=== PATIENT | female | born 1950 | race Caucasian/White ===

== ENCOUNTER 2020-04-09 15:06 | Outpatient (CLI) | payer MEDICARE, SELFPAY ==
--- NOTE | ~2020-04-09 | MM_ITS ---
EXAMINATION: MM screening [facility] BI w jacki HISTORY: Screening TECHNIQUE: Craniocaudal and mediolateral oblique 3-D tomosynthesis images were obtained and synthetic 2-D images were generated. CAD analysis was submitted and interpreted. COMPARISON: Comparison to multiple prior studies sequentially, with oldest reviewed study dated 03/24. BREAST PARENCHYMAL COMPOSITION: There are scattered areas of fibroglandular density. FINDINGS: There is no evidence of suspicious mass, calcification, or architectural distortion to sugg est malignancy in either breast. There has been no suspicious interval change. IMPRESSION: 1. No mammographic evidence of malignancy. 2. Recommend routine screening mammography in one year. BI-RADS Category 1: Negative Reviewed, dictated and finalized at location A.
== END 2020-04-09 15:07 | disposition home or self-care (01) ==
LOC: ANHIMG 15:12
DX: Z12.31 Encounter for screening mammogram for malignant neoplasm of breast (principal)
CPT/HCPCS: 77063; 77067

== ENCOUNTER 2021-05-07 12:41 | Outpatient (CLI) | payer MEDICARE, SELFPAY ==
--- NOTE | ~2021-05-07 | MM_ITS ---
EXAMINATION: MM screening [facility] BI w jacki HISTORY: Screening TECHNIQUE: Craniocaudal and mediolateral oblique 3-D tomosynthesis images were obtained and synthetic 2-D images were generated. CAD analysis was submitted and interpreted. COMPARISON: Comparison to multiple prior studies sequentially, with oldest reviewed study dated 06/07. BREAST PARENCHYMAL COMPOSITION: There are scattered areas of fibroglandular density. FINDINGS: There is no evidence of suspicious mass, calcification, or architectural distortion to sugg est malignancy in either breast. There has been no suspicious interval change. IMPRESSION: 1. No mammographic evidence of malignancy. 2. Recommend routine screening mammography in one year. BI-RADS Category 1: Negative Reviewed, dictated and finalized at location D.
== END 2021-05-07 12:42 | disposition home or self-care (01) ==
LOC: ANHIMG 12:50
DX: Z12.31 Encounter for screening mammogram for malignant neoplasm of breast (principal)
CPT/HCPCS: 77063; 77067

== ENCOUNTER 2022-06-04 15:23 | Outpatient (CLI) | payer MEDICARE, SELFPAY ==
--- NOTE | ~2022-06-04 | MM_ITS ---
EXAMINATION: MM screening [facility] BI w jacki HISTORY: Screening mammogram TECHNIQUE: Craniocaudal and mediolateral oblique 3-D tomosynthesis images were obtained and synthetic 2-D images were generated. CAD analysis was submitted and interpreted. COMPARISON: 05/07/2021, 04/2020, 11/08/2018 bilateral screening mammogram examinations BREAST PARENCHYMAL COMPOSITION: There are scattered areas of fibroglandular density. FINDINGS: There is no evidence of suspicious mass, calcification, or architectural distortion to sugg est malignancy in either breast. There has been no suspicious interval change. IMPRESSION: 1. No mammographic evidence of malignancy. 2. Recommend routine screening mammography in one year. BI-RADS Category 1: Negative Reviewed, dictated and finalized at location A.
== END 2022-06-04 15:24 | disposition home or self-care (01) ==
DX: Z12.31 Encounter for screening mammogram for malignant neoplasm of breast (principal)
CPT/HCPCS: 77063; 77067

== ENCOUNTER 2023-11-03 15:45 | Outpatient (CLI) | payer MEDICARE, SELFPAY ==
--- NOTE | ~2023-11-03 | MM_ITS ---
EXAMINATION: MM screening [facility] BI w jacki HISTORY: Screening TECHNIQUE: Craniocaudal and mediolateral oblique 3-D tomosynthesis images were obtained and synthetic 2-D images were generated. CAD analysis was submitted and interpreted. COMPARISON: Comparison to multiple prior studies sequentially, with oldest reviewed study dated 04/2017. BREAST PARENCHYMAL COMPOSITION: Not dense: There are scattered areas of fibroglandular density. FINDINGS: There is a new focal asymmetry in the upper outer quadrant of the right breast posteriorly. The left breast is stable without evidence for malignancy. IMPRESSION: 1. New right breast asymmetry. 2. Additional mammographic views and possible breast ultrasound are recommended. BI-RADS Category 0: Incomplete: Needs additional imaging evaluation. Reviewed, dictated and finalized at location A. L PRESS OPERATOR IMPRESSION: 1. New right breast asymmetry. 2. Additional mammographic views and possible breast ultrasound are recommended . BI-RADS Category 0: Incomplete: Needs additional imaging evaluation.
== END 2023-11-03 15:46 | disposition home or self-care (01) ==
DX: Z12.31 Encounter for screening mammogram for malignant neoplasm of breast (principal); R92.8 Other abnormal and inconclusive findings on diagnostic imaging of breast
CPT/HCPCS: 77063; 77067

== ENCOUNTER 2024-01-21 12:57 | Outpatient (CLI) | payer MEDICARE, SELFPAY ==
--- NOTE | ~2024-01-21 | MM_ITS ---
EXAMINATION: MM diagnostic paula RT w jacki HISTORY: New focal asymmetry reported in the upper outer right breast posteriorly TECHNIQUE: Additional 3-D tomosynthesis images of the right breast were performed and synthetic 2-D i mages were generated. Rolled medial and rolled lateral craniocaudal views. CAD analysis was submitted and interpreted. COMPARISON: November 03, 2023, June 04, 2022 bilateral screening mammogram examinations FINDINGS: No suspicious mass or architectural distortion, malignant calcification, skin thickening or retraction or significant new or developing density is detected. IMPRESSION: 1. No mammographic evidence of malignancy 2. Routine annual mammographic screening is recommended BI-RADS Category 1: Negative Reviewed, dictated and finalized at location B.
== END 2024-01-21 12:58 | disposition home or self-care (01) ==
LOC: ANHIMG 12:58
DX: R92.8 Other abnormal and inconclusive findings on diagnostic imaging of breast (principal); N64.89 Other specified disorders of breast
CPT/HCPCS: 77061; 77065; G0279

== ENCOUNTER 2025-04-30 14:36 | Outpatient (CLI) | payer MEDICARE, SELFPAY ==
--- NOTE | ~2025-04-30 | MM_ITS ---
EXAMINATION: MM screening paula BI w jacki HISTORY: Screening TECHNIQUE: Craniocaudal and mediolateral oblique 3-D tomosynthesis images were obtained and synthetic 2-D images were generated. CAD analysis was submitted and interpreted. COMPARISON: Comparison to multiple prior studies sequentially, with oldest reviewed study dated 05/14/2017. BREAST PARENCHYMAL COMPOSITION: There are scattered areas of fibroglandular density. FINDINGS: There is no evidence of suspicious mass, calcification, or architectural distortion to suggest malignancy in either breast. IMPRESSION: 1. No mammographic evidence of malignancy. 2. Recommend routine screening mammography in one year. BI-RADS Category 1: Negative Reviewed, dictated and finalized at location B.
--- OUTSIDE RECORDS SUMMARY | 2025-04-30 14:45 | XMS_ITS | Encounter Summary ---
Author Organization [facility] Address [facility] [place] [address] Care Team Providers Care Field Cane Scale Clerk Name Role Phone Meaghan Olsen MD Primary Care Provider García Saucedo MD Unavailable [phone] John Dang MD Unavailable Reason for Visit * Reason Onset Date Comments MEDICATION REFILL 09/20/2018 Encounter Details Date Type Department Care Team (Late Contact Info) Description 09/20/2018 Refill [facility] General Internal Medicine [address] [facility] [address] [place] [address] Meaghan Olsen MD [address] [facility] [address] [place] [address] MEDICATION REFILL Social History Tobacco Use Types Packs/Day Years Used Date Smoking Tobacco: Never Smokeless Tobacco: Never Alcohol Use Standard Drinks/Week Comments Yes 1 (1 standard drink = 0.6 oz pur e alcohol) rare Comments No Sex and Gender Information Value Date Recorded Sex Assigned at Not on file Legal Sex Female 12:58 PM CDT Gender Identity Not on file Sexual Orientation Not on file documented as of this encounter Plan of Treatment Upcoming Encounters Date Type Department Care Team (Late Contact Info) Description 04/25/2026 1:00 PM CDT Office Visit [facility] Physician Group - RETAIL EQUIPMENT ASSOCIATE [address] [facility] [address] [place] [id number] Elijah Muir MD [address] [place], [place] [id number] documented as of this encounter Visit Diagnoses Not on filedocumented in this encounter Care Teams Field Cane Scale Clerk Relationship Specialty Start Date End Date Meaghan Olsen MD PCP - General 02/22/18 García Saucedo MD [address] [place] [address] Endocrinology 11/29/18 John Dang MD [address] [place] [address] Pulmonary Disease 11/29/18 documented as of this encounter
--- OUTSIDE RECORDS SUMMARY | 2025-04-30 14:45 | XMS_ITS | Encounter Summary ---
Author Organization [facility] Address [address] [place] [address] Phone Care Team Providers Care Skip Tracer Name Role Phone Meaghan Olsen MD Primary Care Provider García Saucedo MD Unavailable [phone] Laverne Tavarez MD PhD Unavailable [phone] Elijah Muir MD Unavailable [phone] Huma Olsen RN Unavailable Unavailabl e Encounter Details Date Type Department Care Team (Latest Contact Info) Description 11/03/2023 Orders Only [facility] Scanning, Provider Social History Tobacco Use Types Packs/Day Years Used Date Smoking Tobacco: Never Smokeless Tobacco: Never AUDIT-C Answer Date Recorded Q1: How often do you have a drink containing alc ohol? 2-4 times a month 02/19/2022 Q2: How many drinks containi ng alcohol do you have on a typical day when you are drinking? 1 or 2 02/19/2022 Q3: How often do you have si x or more drinks on one occasion? 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 Gender Identity Not on file Sexual Orientation Not on file documented as of this encounter Plan of Treatment Scheduled Procedures Name Priority Associated Diagnoses Date/Ti me COLONOSCOPY Other constipation ESOPHAGOGASTRODUODENOSCOPY Gastroesophageal reflux disease without esophagitis documented as of this encounter Procedures Procedure Name Priority Date/Time Associated Diagnosis Comments SCAN - RADIOLOGY/IMAGING 11/03/2023 documented in this encounter Results * SCAN - RADIOLOGY/IMAGING (11/03/2023) Anatomical Region Laterality Modality Other Provider Scanning Final Result documented in this encounter Visit Diagnoses Not on filedocumented in this encounter Care Teams Skip Tracer Relationship Specialty Start Date End Date Meaghan Olsen MD PCP - General 12/20/17 García Saucedo MD Consulting Physician Bone Health 03/24/21 Laverne Tavarez MD PhD [address] [facility] [address] [place] [address] Consulting Physician Pulmonary Disease 03/24/21 Elijah Muir MD [address] [facility] [address] [place] [address] Obstetrics and Gynecology 03/26/21 Huma Olsen RN Registered Nurse Pulmonary Disease 08/02/23 documented as of this encounter
--- OUTSIDE RECORDS SUMMARY | 2025-04-30 14:46 | XMS_ITS | Encounter Summary ---
Author Organization [facility] Address [facility] [place] [address] Care Team Providers Care Monotype Setter Name Role Phone Meaghan Olsen MD Primary Care Provider García Saucedo MD Unavailable [phone] John Dang MD Unavailable Reason for Visit * Reason Onset Date Comments MEDICATION REFILL 08/15/2018 Encounter Details Date Type Department Care Team (Late st Contact Info) Description 08/15/2018 Refill [facility] General Internal Medicine [address] [facility] [address] [place] [address] Meaghan Olsen MD [address] [facility] [address] [place] [address] MEDICATION REFILL Social History Tobacco [...] on file documented as of this encounter Miscellaneous Notes * Telephone Encounter - Argelia Stubbs - 08/15/2018 9:19 AM CST Patient requesting refills for the following (estradiol 0.5 mg ) medications. Patient reports that she is taking only half a tablet VAN:05-31-18 NOV:11-29-18 @ 9:30 am Problem List Identified: office visit on 02-22-18 hot flashes Medication attached per refill protocol/guidlines for further review by provider yes PCP / Resident PCP verified yes Allergies Reviewed yes Pharmacy Reviewed yes Medication details entered yes Office visit within the last six months yes if not within last 6 months route to GIM-scheduling as well. Office visit greater than 12 months no routed to GIM scheduling ONLY no. AND CENTER OFFICER documented in this encounter Plan of Treatment Upcoming Encounters Date Type Department Care Team (Late st Contact Info) Description 04/25/2026 1:00 PM CDT Office Visit [facility] Physician Group - MONOTYPE MACHINIST [address] [facility] [address] [place] [address] Elijah Muir MD [address] [facility] [address] [place] [address] documented as of this encounter Visit Diagnoses Not on filedocumented in this encounter Care Teams Monotype Setter Relationship Specialty Start Date End Date Meaghan Olsen MD PCP - General 02/22/18 García Saucedo MD [address] [place] [phone] Endocrinology 11/29/18 John Dang MD [address] [place] [address] Pulmonary Disease 11/29/18 documented as of this encounter
--- OUTSIDE RECORDS SUMMARY | 2025-04-30 14:46 | XMS_ITS | Encounter Summary ---
Author Organization [facility] Address [address] [place] [address] Phone Care Team Providers Care Knitting Machine Fixer Head Name Role Phone Lisseth Perez MD Primary Care Provider + Lisseth Perez MD Primary Care Provider + Clement Childs MD Primary Care Provider + Lisseth Perez MD Primary Care Provider + Lisseth Perez MD Primary Care Provider + Meaghan Olsen MD Primary Care Provider García Saucedo MD Unavailable [phone] Laverne Tavarez MD PhD Unavailable Elijah Muir MD Unavailable [phone] Huma Olsen RN Unavailable Unavailabl e Encounter Details Date Type Department Care Team (Latest Contact Info) Description 11/03/2017 Orders Only [facility] Scanning, Provider Social History Tobacco Use Types Packs/Day Years Used Date Smoking Tobacco: Never Assessed Comments Unknown Sex and Gender Information Value Date Recorded Sex Assigned at Not on file Legal Sex Female 4:36 PM YOUTH CARE SPECIALIST Gender Identity Not on file Sexual Orientation Not on file documented as of this encounter Plan of Treatment Scheduled Procedures Name Priority Associated Diagnoses Date/Ti me COLONOSCOPY Other constipation ESOPHAGOGASTRODUODENOSCOPY Gastroesophageal reflux disease without esophagitis documented as of this encounter Procedures Procedure Name Priority Date/Time Associated Diagnosis Comments PULMONARY FUNCTION TEST (PFT) 11/03/2017 9:30 AM YOUTH CARE SPECIALIST documented in this encounter Results * PULMONARY FUNCTION TEST (PFT) (11/03/2017 9:30 AM YOUTH CARE SPECIALIST) Anatomical Region Laterality Modality PFT us Provider Scanning PFT ORDERABLES Final Result documented in this encounter Visit Diagnoses Not on filedocumented in this encounter Care Teams Knitting Machine Fixer Head Relationship Specialty Start Date End Date Lisseth Perez MD [address] [place] [address] PCP - General 08/02/17 11/21/17 Lisseth Perez MD [address] [place] [address] PCP - General 11/22/17 11/29/17 Clement Childs MD [address] [place] [address] PCP - General 11/30/17 12/12/17 Lisseth Perez MD [address] [place] [address] PCP - General 12/13/17 12/13/17 Lisseth Perez MD [address] [place] [address] PCP - General 12/14/17 12/19/17 Meaghan Olsen MD [address] [place] [address] PCP - General 12/20/17 García Saucedo MD [address] [place] [address] Consulting Physician Bone Health 03/24/21 Laverne Tavarez MD PhD [address] [facility] [address] [place] [address] Consulting Physician Pulmonary Disease 03/24/21 Elijah Muir MD [address] [place] [address] Obstetrics and Gynecology 03/26/21 Huma Olsen RN Registered Nurse Pulmonary Disease 08/02/23 documented as of this encounter
--- OUTSIDE RECORDS SUMMARY | 2025-04-30 14:46 | XMS_ITS | Clinical Summary ---
Author Organization [facility] Address [address] [place] [address] Care Team Providers Care Lotus Notes Administrator Name Role Phone Meaghan Olsen MD Primary Care Provider García Saucedo MD Unavailable [phone] Laverne Tavarez MD PhD Unavailable [phone] Elijah Muir MD Unavailable [phone] Huma Olsen RN Unavailable Unavailabl e Allergies Active Allergy Reactions Criticality Noted Date Comments Levofloxacin Other (See comments),Unknown Low 04/29/2015 Flu like symptoms Flu like symptom Metformin Diarrhea Low 12/07/2023 Not effective Mold Anaphylaxis High 12/20/2017 Medications terri eiaz-eskastvg-ehsj lenic ac 1,000 mg capsule Take by mouth. Activ e cholecalciferol, vitamin D3, (CHOLECALCIFEROL, VIT D3,,BULK, MISC) 2,000 Units Active estradioL (ESTRACE) 0.5 mg tablet Take 1 tablet (0.5 mg total) by mouth daily 09/12/19 20 Active fluticasone propion-salmeteroL (ADVAIR DISKUS) 100-50 mcg/dose diskus inhaler Inhale 1 puff 2 (two) times a day Rinse mouth with water after use. Do not swallow. 1 each 07/22/20 22 Active omeprazole (PriLOSEC) 20 mg capsuleIndications :Gastroesophageal reflux disease without esophagitis Take 1 capsule (20 mg total) by mouth daily 90 capsule 3 08/04/20 23 Active rosuvastatin (CRESTOR) 5 mg tablet TAKE 1 TABLET(5 MG) BY MOUTH DAILY 90 tablet 4 03/07/20 24 Active turmeric root extract 500 mg capsule Take by mouth Active glucosamine-chondr oitin 500-400 mg tablet Take 1 tablet by mouth 3 (three) times a day Active albuterol HFA (PROVENTIL HFA,VENTOLIN HFA,PROAIR HFA) 90 mcg/actuation inhalerIndications :Viral upper respiratory tract infection Inhale 2 puffs every 6 (six) hours as needed for wheezing 1 each 5 06/08/20 24 Active valACYclovir (VALTREX) 1 gram tablet Take 2 tabs (2000 mg) 2 times a days for 1 day. 8 tablet 2 08/09/20 24 Active Additional Information Patient taking differently: As needed, Take 2 tabs (2000 mg) 2 times a days for 1 day., Reported on 11/14/2024 tirzepatide, weight loss, (Zepbound) 2.5 mg/0.5 mL pen injectorIndication s:ZAK Inject 0.5 mL (2.5 mg total) under the skin every 7 days 2 mL 09/07/19 25 Active Additional Information Patient not taking.Reported on 11/14/2024 travoprost (TRAVATAN Z) 0.004 % drops INSTILL 1 DROP IN LEFT EYE IN THE EVENING 09/20/19 25 Active methylPREDNISolone (MEDROL DOSEPACK) 4 mg DosepackIndication s:Primary osteoarthritis of both knees Take 1 tablet (4 mg total) by mouth as needed (as directed on package) Use as directed by package instructions 21 tablet 03/02/20 25 Active meloxicam (MOBIC) 15 mg tablet Take 1 tablet (15 mg total) by mouth daily 14 tablet 03/22/20 25 Active Hospital, Clinic, or Other Facility Administered Medication Ordered Dose Route Frequency Start Date End Date Status mepolizumab (NUCALA) injection 100 mgIndications:Severe persistent asthma without complication (HCC) 100 mg subQ Every 28 days 11/26/2021 Act madhavi Active Problems Problem Noted Date Diagnosed Date Metatarsalgia of both feet 08/09/2024 Overview (08/10/2024): Chronic foot pain due to bunions, currently managed with custom orthotics. Patient reports discomfort with daily use of orthotics. -Consider strength training for overall health and potential pain relief. HSV-1 infection 08/09/2024 Overview (08/10/2024): Occurring approximately every other month. Currently managed with episodic Valtrex. -Provide Valtrex 2 tablets twice a day for 1 day at onset of symptoms. -Discuss possibility of daily suppressive therapy if frequency increases. At increased risk for cardiovascular disease 04/2024 Overview (07/14/2024): HTN, hyperlipidemia; 10-yr CVD risk 16.6%; Fhx premature CAD in father. Assessment & Plan (07/14/2024 3:08 PM HAT BODY INSPECTOR): Start Wegovy for CVD risk reduction. Hypertension, essential 01/21/2022 Overview (08/10/2024): BP at goal, no meds Assessment & Plan (07/14/2024 3:13 PM HAT BODY INSPECTOR): BP in good range today. Reviewed role of diet, exercise, weight loss in controlling blood pressure. Recommended low sodium/DASH diet. Assessment & Plan (03/03/2022 8:18 PM CDT): Reviewed role of diet, exercise, weight loss in controlling blood pressure. Recommended low sodium/DASH diet. Continue current medications. Insulin resistance 12/05/2021 Overview (03/15/2024): Noted by Weight Management--restarted on metformin in March 2024 Assessment & Plan (06/27/2023 3:26 PM CDT): Labs. Reviewed most recent labs available. Continue low-carb (<150 g/day), low-glycemic diet. Continue semaglutide. Samples provided. Assessment & Plan (12/17/2022 5:02 PM CDT): Continue low-carb (<150 g/day), low-glycemic diet. Recheck CMP. Continue semaglutide 0.5 mg weekly. Assessment & Plan (09/14/2022 1:10 PM HAT BODY INSPECTOR): Reviewed most recent labs available. Continue low-carb (<150 g/day), low- glycemic diet. Discussed options and will add GLP-1 analog. Discussed risks, benefits, alternatives, potential side effects. No personal or family history of MTC or MEN2. Reviewed dosing/titration; for patients seen in the office, reviewed proper administration using demo pen; reviewed appropriate storage. Referred to websites for additional instructions/info/video. Start semaglutide. Assessment & Plan (06/04/2022 10:20 AM CDT): Reviewed labs. Continue low-carb (<150 g/day), low-glycemic diet. Discussed and she will start the metformin. Assessment & Plan (03/03/2022 8:17 PM CDT): Labs. Reviewed available prior labs in chart and Care Everywhere. Recommended low-glycemic diet. Reviewed importance of adequate protein intake of 1-1.2 g/kg IBW/day. Weight loss counseling, encounter for 12/05/2021 Assessment & Plan (04/23/2023 2:42 PM CDT): Reviewed calorie restriction based on BMR as previously detailed. Reviewed recommendation/goal of >/= 150 minutes/week moderate-intensity aerobic exercise. Asked to keep detailed food diary for at least 1 week and bring to next visit and/or continue tracking on phone. Assessment & Plan (12/17/2022 5:02 PM CDT): Reviewed calorie restriction based on BMR as previously detailed. Reviewed recommendation/goal of >/= 150 minutes/week moderate-intensity aerobic exercise. Asked to try to track consistently with [employer] for at least 1 week to help identify calorie/carb/protein intake. Commended for weight loss to date. Assessment & Plan (09/14/2022 1:08 PM HAT BODY INSPECTOR): Reviewed calorie restriction based on BMR as previously detailed. Reviewed recommendation/goal of >/= 150 minutes/week moderate-intensity aerobic exercise. Asked to keep detailed food diary for at least 1 week and bring to next visit and/or continue tracking on phone. Assessment & Plan (06/04/2022 10:18 AM CDT): Reviewed calorie restriction based on BMR as previously detailed. Reviewed recommendation/goal of >/= 150 minutes/week moderate-intensity aerobic exercise. Asked to keep detailed food diary for at least 1 week and bring to next visit and/or continue tracking on phone. Class 2 severe obesity with serious comorbidity and body mass index (BMI) of 39.0 to 39.9 in adult 09/24/2020 Overview (11/14/2024): Highest weight 206 lb -- BMI 39. Following with Weight Management; GLP1 no longer covered; declined for high risk heart disease Discussed weight management/goals, value of BMI (based on white males) Focus on regular movement, healthy foods rather than on weight Assessment & Plan (06/27/2023 3:26 PM CDT): Obesity is improving. Plan: Diet interventions: as noted. Regular aerobic exercise program discussed. Medication as prescribed. Follow up in 3 months Assessment & Plan (12/17/2022 5:02 PM CDT): Obesity is improving with treatment. BMI today at 30.4, initial visit BMI at 34.77. Diet interventions: as noted. Regular aerobic exercise program discussed. Plan- Continue pharmacotherapy. Continue diet/exercise interventions as discussed. Schedule follow up with Dr. Singh in 1 month. Assessment & Plan (09/14/2022 1:11 PM HAT BODY INSPECTOR): Obesity is unchanged.. Plan: Diet interventions: as noted.., Regular aerobic exercise program discussed. and Medication as prescribed. Assessment & Plan (06/04/2022 10:20 AM CDT): Obesity is improving.. Plan: Diet interventions: as noted.., Regular aerobic exercise program discussed. and Medication as prescribed. Assessment & Plan (03/03/2022 8:18 PM CDT): Obesity is unchanged. General weight loss/lifestyle modification strategies discussed (elicit support from others; identify saboteurs; non-food rewards, etc). Diet interventions: as noted. Informal exercise measures discussed, e.g. taking stairs instead of elevator. Regular aerobic exercise program discussed. More detailed recommendations pending review of labs, food record. Gastroesophageal reflux disease without esophagi tis 09/24/2020 Overview (08/04/2023): EGD February 2022--reviewed results, GI rec no further action at this time other than PPI PRN Had increased omeprazole to 40mg, now back to 20mg Disc disease, degenerative, lumbar or lumbosacra l 02/21/2020 Osteoarthritis 02/21/2020 Overview (03/15/2024): Following with Ortho--has had steroid injections Knees significant--just had gel injection Feet are her primary issue--MTP arthritis, bunions--orthotics were helpful but still problematic--Ortho going to assist with scheduling Assessment & Plan (03/03/2022 8:15 PM CDT): Discussed comorbidities associated with sleep apnea, including effects on weight, and stressed importance of adequate treatment if present. Hyperparathyroidism, primary ([facility]) 6 Overview (08/07/2024): Following with [facility] for osteopenia in setting of longterm steroid use Renal function stable Jul 2024: PTH 85 DEXA with improved forearm, Jul 2024 ZAK (obstructive sleep apnea) 04/29/2015 Overview (09/07/2024): Sep 2022 PSG -- This all night polysomnogram provides evidence of mild-moderate obstructive sleep apnea based on a 3% AHI of 29.4 and a 4% AHI of 12.6 events per hour of sleep. The severity while the patient was supine was severe based on a supine AHI of 49.0. Sleep study in 2002 showed severe sleep apnea Assessment & Plan (03/03/2022 8:15 PM CDT): Discussed comorbidities associated with sleep apnea, including effects on weight, and stressed importance of adequate treatment if present. Hyperlipidemia 08/12/2009 Overview (08/10/2024): Repeat lipids--previously with LDL >190 on repeat had dropped below 190 Patient resistant to statins in the past; agreeable to started 5mg rosuvstatin QHS in Oct 2021; LDL in December 2021 of 75 No side effects of rosuvastatin--had stopped prior to last lipid panel--LDL 163--restarted rosuvastatin Repeat cholesterol now Assessment & Plan (03/03/2022 8:19 PM CDT): Labs. Discussed role of diet, exercise and weight loss in improving lipid profile. Osteopenia 11/30/2006 Overview (08/07/2024): Following with [facility] DEXA Jul 2024: increased in foreaarm Continue daily Vitamin D, Ca via diet Encouraged weight bearing exercise Severe persistent asthma Overview (08/07/2024): Previously very poorly controlled, on long-term steroids--has not taken steroids since ~2016 Well controlled--Wilexa daily, PRN albuterol Continue monthly Nucala injections Follows with Pulmonary Well controlled; continue current therapy Assessment & Plan (06/11/2024 12:11 PM CDT): 06/2024 History of asthma exacerbations with viral infections. Currently on Nucala and Advair discus. No current exacerbation or shortness of breath. -Continue Nucala and Advair discus. -Use albuterol inhaler prophylactically once daily for the next 5 days. -Refill albuterol prescription. -Reach out if symptoms worsen or do not improve. Resolved Problems Problem Noted Date Diagnosed Date Resolved Date Family history of premature CAD 07/14/2024 08/09/2024 Overview (07/14/2024): Father had NC at 48 yo Viral upper respiratory tract infection 06/11/2024 08/07/2024 Overview (06/11/2024): 06/2024 Symptoms started 4 days ago with sore throat, cough, and mucus production. No fever. Sore throat improved with chloraseptic, cough lozenges, and salt water gargling. Cough and mucus production persist. Mucus has become dark green. No lower respiratory symptoms. No signs of pneumonia on examination. Negative home COVID test. -Continue supportive care with Flonase, Zyrtec, and nasal rinse. -Consider Mucinex if mucus does not clear. -Start Tessalon Perles for cough symptom control. -Reach out if symptoms worsen or do not improve and will consider CXR. Other constipation 08/04/2023 4 Overview (08/04/2023): Repeat colonoscopy due to possible change in how her constipation is; due for regular screening in 2024 Continue fiber, water Trial of Linzess 145mcg daily Capsulitis of foot 07/22/2022 3 Overview (07/22/2022): Using inserts--not sure if help or if it is wearing supportive shoes Consider topical diclofenac Screening for ischemic heart disease 07/22/2022 08/04/2023 Falls, sequela 03/10/2022 07/20/2022 Overview (03/10/2022): Hematoma on forehead has been improving; continue to monitor Discussed options for therapy for neck stretching, massage, ice Vasovagal syncope 03/10/2022 07/20/2022 Overview (03/10/2022): LOC related to abdominal cramping, straining; no further workup at this time Abnormal finding of blood ch emistry, unspecified 03/03/2022 03/10/2022 Weight gain 12/05/2021 03/10/2022 Assessment & Plan (03/03/2022 8:16 PM CDT): Discussed that significant health benefits/risk reduction may be seen with even 5% weight loss. Discussed that weight loss will require calorie deficit. Calculated basal metabolic rate and estimated total energy expenditure; discussed 500-1000 kcal/day deficit to lose 1-2 lb per week. Asked to keep detailed food diary for at least 1 week and bring to next visit. Discussed setting SMART goals. Discussed relatively small, although significant, role of exercise in weight loss; greater importance in weight maintenance as shown in Look Ahead study and National Weight Control Registry. Discussed recommendation/goal for 150 minutes per week moderate-intensity aerobic exercise. Pain of right upper extremity 03/25/2021 09/22/2021 Overview (03/25/2021): Ache Started in November 2020 Plain film to evaluate bone Weight gain 03/25/2021 10/22/2021 Overview (03/25/2021): Keep food diary--send in 2 weeks Excoriation of upper arm 03/25/2021 Overview (03/25/2021): Occurs while gardening Tdap DDD (degenerative disc disea se), thoracolumbar 05/02/2020 09/24/2020 Assessment & Plan (05/02/2020 1:46 PM CDT): No red flags in history or exam I recommend continuing conservative therapy for another 2 weeks including scheduled anti-inflammatories, extra strength tylenol and continuing home PT exercises daily She will call in 2 weeks if symptoms do not improve - will order formal course of PT at that time She agrees with plan Elevated blood pressure read ing without diagnosis of hypertension 05/02/2020 09/24/2020 Assessment & Plan (05/02/2020 1:52 PM CDT): BP high during this office visit and past office visit She reports at home BP is around 130/80 Advised checking at home and alerting us if BP>130/80 consistently Fatigue 02/22/2020 09/24/2020 Abnormal stool caliber 02/22/202009/24 Overview (02/22/2020): Thinner stools, however no melana, hematochezia; has improved since last PCP visit Colonoscopy up to date Check CBC-if anemic, will order colonoscopy Assessment & Plan (05/02/2020 1:48 PM CDT): Continuing symptoms - improved when she takes metamucil Advised she can take this every day if it helps I also advised removing potential dietary triggers. For example her symptoms usually occur in the morning and she drinks coffee in the AM. Consider eliminating coffee and reassess symptoms Call with any change or worsening in symptoms Health maintenance examination 02/22/2020 02/22/2020 Encounter for screening mamm ogram for malignant neoplasm of breast 02/22/2020 02/22/2020 Establishing care with juan carlos ramirez, encounter for 02/22/2020 02/22/2020 TMJ (sprain of temporomandibular joint) 02/21/2020 09/24/2020 Overview (02/22/2020): Reviewed exercises for TMJ: Isometric jaw thrust, isometric jaw opening Ok to use naproxen, Tylenol Continue massage Likely related to increased stress, tension Patient to monitor symptoms--update if worsening Idiopathic hematuria 05/30/2019 020 Overview (02/21/2020): Completed cystoscopy with UroGyn--no abnormalities Atrophic vulva 03/22/2019 02/21/2020 Hyperparathyroidism 11/22/2017 02/21/20 20 Chronic steroid use 12/18/2013 02/21/20 20 Allergic asthma 07/04/2013 02/21/2020 Overview (04/18/2018): Overview: Severe allergic asthma treated with Xolair 10/2005 - 04/2009. Immunotherapy 2005- 2008. Positive methacholine challenge at 5 mg/ml 08/02/06. Last Assessment & Plan: Assessment: incomplete control on Prednisone Plan: continue management with pulmonology. Pt frustrated with her inability to lose weight on the Prednisone. We can recheck the TSH, but otherwise the goal for weight is to get her off the Prednisone if possible. Continue efforts with diet and activity. Offered referral to endocrinology, but Pt declines at this time. Insomnia 12/06/2007 09/24/2020 Overview (02/21/2020): Overview: Menopausal hot flushes 11/30/200608/04 Overview (03/24/2021): Continues oral estrogen: Estrace 0,5mg--prescribed by [employer]--follows annually Recurrence of hot flushes with weaning--has tried x2 Have reviewed risks of oral estrogen with patient; discussed warning signs of PE, DVT Encounters Date Type Department Care Team Description 04/25/2025 2:30 PM CDT Infusion [facility] [address] [facility] [address], [place] [address] Severe persistent asthma without complication (HCC) (Primary Dx) 03/28/2025 2:30 PM CDT [facility] [address] [facility] [address], [place] [address] Severe persistent asthma without complication (HCC) (Primary Dx) 03/07/2025 4:33 PM CDT - 03/07/2025 11:59 PM CDT Hospital Encounter [facility] [address] [place] [address] Primary osteoarthritis of both knees Discharge Disposition: Discharge to home or self care 03/07/2025 4:00 PM CDT [facility] [address] [facility] 1st [address] [place] [address] Tod Varner MD Primary osteoarthritis of both knees (Primary Dx); Right knee pain, unspecified chronicity 02/28/2025 2:30 PM CDT [facility] [address] [facility] [address], [place] [address] Severe persistent asthma without complication (HCC) (Primary Dx) 02/27/2025 [facility] [address] [facility] [address] [place] [address] Caty Smart RMA 01/31/2025 2:00 PM CDT [facility] [address] [facility] [address], [place] [address] Severe persistent asthma without complication (HCC) (Primary Dx) from Last 3 Months Immunizations Immunization Administration Dates Next Due H1N1 All Forms 08/06/2009 Influenza Virus Vaccine Trivalent Mdv 06/15/2017 Influenza, Quad, Adjuvantate d, Intramuscular 05/17/2020 Influenza, Quadrivalent, Hig h Dose, Preservative Free, Intrr 06/17/2023,07/16/2022,07/29/2021,05/30,05/31/2018 Influenza, Trivalent, Adjuva nted, Intramuscular 06/15/2017 Influenza, Trivalent, High D ose, Split, Preservative Free, Intramuscular 05/30/2019,05/31/2018 Influenza, Trivalent, IM (MDV) 4,08/15/2012,06/23/2011,07/23 Influenza, Trivalent, Preser vative Free, Intramuscular 05/17/2020,07/08/2015,07/03/2013 Influenza, Unspecified 06/17/2023,08/12/2021,07/2020 Moderna SARS-CoV-2 Monovalen t Vaccination (12+ YRS) 08/05/2021,2020,10/22/2020 Pneumococcal Conjugate PCV 13 04/29/2015, 015 Pneumococcal Polysaccharide PPV23 02/22/2018,09/2002 Pneumococcal, Unspecified 09/06/2002 RSV Vaccine, Pref, Recombina nt, Subunit, Adjuvanted, PF, IM (Arexvy) 07/14/2023 Tdap 03/25/2021,07/23/2010 ZOSTER LIVE 06/15/2017 ZOSTER Recombinant 09/14/2019,06/19/2019 Surgical History Surgery Date Site/Laterality Comments BILATERAL OOPHORECTOMY 09/06/2011 - 09/05/2012 PARTIAL HYSTERECTOMY 09/06/1997 - 09/05/1998 BLADDER SUSPENSION 09/06/2001 - 09/05/2002 CATARACT EXTRACTION, BILATERAL 09/06/1994 - 09/05/1995 FOOT SURGERY 09/06/1986 - 09/05/1987 FOOT SURGERY 09/06/1970 - 09/05/1971 Medical History Medical History Date Comments Personal history of other di seases of the respiratory system History of lung disease - (A dded by TW Conv) Asthma Gastric reflux Obesity Osteoporosis Sleep apnea Urinary tract infection GERD (gastroesophageal reflux disease) Menopausal hot flushes 11/30/2006 Continues oral estrogen: Estrace 0,5mg--prescribed by [employer]--follows annually Recurrence of hot flushes with weaning--has tried x2 Have reviewed risks of oral estrogen with patient; discussed warning signs of PE, DVT Family History Medical History Relation Name Comments Heart attack Father Family history of myocardial infarction - father at 47 with massive heart attack (Added by TW Conv) Hypertension Mother Family history of hypertension - (Added by TW Conv) Tuberculosis Mother Family history of tuberculosis - (Added by TW Conv) Hip fracture Neg Hx Osteoporosis Neg Hx Relation Name Status Comments Father Mother Social History Tobacco Use Types Packs/Day Years Used Date Smoking Tobacco: Never Smokeless Tobacco: Never Tobacco Cessation:Counseling Given: Not Answered AUDIT-C Answer Date Recorded Q1: How often do you have a drink containing alc ohol? 2-4 times a month 11/14/2024 Q2: How many drinks containi ng alcohol do you have on a typical day when you are drinking? 1 or 2 11/14/2024 Q3: How often do you have si x or more drinks on one occasion? Never 11/14/2024 PHQ-2 Answer Date Recorded PHQ-2 Total Score (If total score is 3 or more points, staff should administer the PHQ-9) 0 08/09/2024 Comments No Sex and Gender Information Value Date Recorded Sex Assigned at Not on file Legal Sex Female 4:36 PM HAT BODY INSPECTOR Gender Identity Not on file Sexual Orientation Not on file Obstetrics History Last Filed Vital Signs Vital Sign Reading Time Taken Comments Blood Pressure 119/79 11/14/2024 2:12 PM CDT Pulse 64 11/14/2024 2:12 PM CDT Temperature 36.7 C (98.1 F) 08/09/2024 12:58 PM HAT BODY INSPECTOR Respiratory Rate 18 07/31/2024 1:25 PM HAT BODY INSPECTOR Oxygen Saturation 95% 11/14/2024 2:12 PM CDT Inhaled Oxygen Concentration - - Weight 78.3 kg (172 lb 9.6 oz) 11/14/2024 2:12 P M CDT Height 154.4 cm (5' 0.79) 11/14/2024 2:45 PM CD T Body Mass Index 32.84 11/14/2024 2:12 PM CDT Plan of Treatment Scheduled Procedures Name Priority Associated Diagnoses Date/Ti me COLONOSCOPY Other constipation ESOPHAGOGASTRODUODENOSCOPY Gastroesophageal reflux disease without esophagitis Health Maintenance Due Date Last Done Comments Covid-19 Vaccine (7 - Modern a risk ) 12/19/2024 06/20/2024, 07/01/2023, 06/29/2022, Additional history exists Colon Cancer Screening-Colonoscopy 04/24/2025 04/24/2015 Influenza Vaccine (#1) 2025 , 06/17/2023, 06/17/2023, Additional history exists Depression Screening 08/09/2025 08/09/2024, 08/04/2023, 07/22/2022, Additional history exists Fall Risk Assessment 08/09/2025 08/09/2024, 08/04/2023, 07/22/2022, Additional history exists Well Visit 65+ 08/09/2025 08/09/2024, 07/08, 07/22/2022, Additional history exists DTaP/Tdap/Td Vaccine (3 - Td or Tdap) 03/25/2031 03/25/2021, 07/23/2010 Colon Cancer Screening-CT Colonography Discontinued 04/24/2015 Colon Cancer Screening-DNA Stool Discontinued 04/24/20 Colon Cancer Screening-FIT Discontinued 04/24/2015 Colon Cancer Screening-Sigmoidoscopy Discontinued 04/24/2015 Pneumococcal vaccine 65+ Completed 018, 04/29/2015, 09/06/2014, Additional history exists Zoster Vaccine Completed 09/14/2019, 06/06, 06/15/2017 Hepatitis C Screening Completed 02/22/2020 Breast Cancer Screening-Mammogram Discontinued 11/03/2023, 06/04/2022, 05/07/2021, Additional history exists Osteoporosis Screening-Bone Density Scan Discontinued 07/31/2024, 07/26/2023, 07/07/2022, Additional history exists Hepatitis B Screening Discontinued Procedures Procedure Name Priority Date/Time Associated Diagnosis Comments XR KNEE RIGHT 3 VIEWS Schedule Routine, Read Routine (OP Routine) 03/07/2025 4:38 PM CDT Primary osteoarthritis of both knees DEXA TBS AXIAL SKELETON BONE DENSITY 1 OR MORE SITES Schedule Routine, Read Routine (OP Routine) 07/31/2024 2:40 PM HAT BODY INSPECTOR Age-related osteoporosis without current pathological fracture MAMMOGRAPHY Routine 06/04/2022 HEPATITIS C ANTIBODY Routine 02/22/2020 1:00 PM CDT Health maintenance examination COLONOSCOPY Routine 04/24/2015 from Last 3 Months or Most Recently Relevant to Health Maintenance Results * XR Knee Right 3 Views (03/07/2025 4:38 PM CDT) Anatomical Region Laterality Modality Lower Extremities, Knee Right Computed Radiography 03/07/2025 4:47 PM CDT Impressions 03/07/2025 4:47 PM CDT 1. Moderate patellofemoral predominant tricompartmental osteoarthritis of the right knee Electronically signed by: Janette Sneed MD Narrative 03/07/2025 4:47 PM CDT EXAMINATION: XR KNEE RIGHT 3 VIEWS HISTORY: Right knee pain FINDINGS: 3 views of the right knee are submitted for interpretation without comparison. Alignment is normal. No acute fractures identified. There is moderate narrowing of the patellofemoral and medial tibiofemoral joint spaces. Minute tricompartmental osteophytes are noted. No significant effusion. Procedure Note Karla Sneed MD - 03/07/2025 EXAMINATION: XR KNEE RIGHT 3 VIEWS HISTORY: Right knee pain FINDINGS: 3 views of the right knee are submitted for interpretation without comparison. Alignment is normal. No acute fractures identified. There is moderate narrowing of the patellofemoral and medial tibiofemoral joint spaces. Minute tricompartmental osteophytes are noted. No significant effusion. IMPRESSION: 1. Moderate patellofemoral predominant tricompartmental osteoarthritis of the right knee Electronically signed by: Janette Sneed MD Tod Varner MD IMG XR PROCEDURES Final Result * Dexa TBS Axial Skeleton Bone Density 1 or more sites (07/31/2024 2:40 PM HAT BODY INSPECTOR) Anatomical Region Laterality Modality Wrist, Body N/A Radiographic Violetta ging Narrative 08/02/2024 10:41 AM HAT BODY INSPECTOR Patient Name: Daysi Ritchie Date of : 1950 Date of scan: 07/31/2024 Bone mineral density was performed on a [employer] Discovery Densitometer. Based on machine cross-calibration and precision studies the least significant changes of this densitometer is 0.024 g/cm2 at the spine, 0.020 g/cm2 at the total proximal femur, and 0.014g/cm2 at the forearm. HISTORY: This is a 73 y.o. postmenopausal female with a history of asthma, hyperparathyroidism, and low bone mass. She reports that she has never smoked. She has never used smokeless tobacco. Currently on treatment with vitamin D and hormone replacement therapy, previously treated with alendronate (Fosamax), ibandronate (Boniva), and glucocorticoids, and current complaint of back pain. INDICATIONS: Menopause status, treatment monitoring, history of glucocorticoids use, and history of low bone mass. FINDINGS: BONE MINERAL DENSITY OF THE LUMBAR SPINE Bone Mineral Density (BMD) of the lumbar spine was measured from L1-L4 and the average density was calculated to be 1.179 gm/cm2. This corresponds to a T-score (standard deviations from the mean of young adults) of 1.2. When compared to the previous study of 07/26/2023 there has been no significant changes in bone density. BONE MINERAL DENSITY OF THE PROXIMAL FEMUR Bone Mineral Density (BMD) of the left hip total was found to be 0.956 gm/cm2. This corresponds to a T-score standard deviations from the mean of young adults of 0.1. Femoral neck is 0.674 gm/cm2 with a T-score (standard deviations from the mean of young adults) of -1.6. When compared to the previous study of 07/26/2023 there has been no significant changes in bone density. BONE MINERAL DENSITY OF THE FOREARM Bone Mineral density (BMD) of the left proximal 1/3 of the radius measures 0.741 gm/cm2. This corresponds to a T-score (standard deviations from the mean of young adults) of 0.8. When compared to the previous study of 07/26/2023 there has been a 0.028 gm/cm (3.9%) increase in bone density that is considered significant. A forearm bone density study was performed in addition to the routine study due to history of hyperparathyroidism. SUMMARY: Bone mineral density shows evidence of low bone mass at the proximal femur and moderately increased fracture risk (Osteopenia). There has been a significant increase in bone density since previous measurement. The lumbar spine Trabecular Bone Score is 1.376 which suggests normal bone microarchitecture, compared to the general population. Final decisions regarding diagnostic or therapeutic recommendations should include BMD, TBS, additional clinical risk factors as well the clinical context of the patient. Please see attached TBS results for further details. ADDITIONAL COMMENTS: Postmenopausal Women and Men Over 50: Diagnostic criteria: Osteoporosis: BMD at or below -2.5 T-score; Osteopenia (low bone mass): BMD between -1.0 and -2.5 T-score. If the patient has a history of a fragility fracture, a fracture that occurred with trauma equivalent to a fall from a standing position or less, then the diagnosis is osteoporosis regardless of bone density. The history and data sections of the bone mineral density scan were prepared by Judith Eubanks(Natacha)(M)(BD) CBDT who is accredited by the International Society of Clinical Densitometry. The overall patient assessment and scan interpretation were performed by García Saucedo M.D. who is certified by the International Society of Clinical Densitometry. [id number] García Saucedo MD IMG DXA PROCEDURES Final Result * MAMMOGRAPHY (06/04/2022) Pathologist [facility] Mammogram Normal Historical Provider HEALTH MAINTENANCE Final Result * Hepatitis C antibody (02/22/2020 1:00 PM CDT) [facility] Hep C Ab Nonreactive Nonreactive EVONNE MCKINNON Comment:Antibodies to HCV no t detected. Does NOT exclude the possibility of recent exposure to HCV. Blood specimen (specimen) 02/22/2020 1:00 PM CDT 02/22/2020 1:18 PM CDT Meaghan Olsen MD LAB MICROBIOLOGY - GEN ERAL ORDERABLES Edited Result - Final [facility] Department [place] [address] * COLONOSCOPY (04/24/2015) Colonoscopy Normal us Historical Provider MD HEALTH MAINTENANCE Final Result from Last 3 Months or Most Recently Relevant to Health Maintenance Insurance MEDICARE [facility] MEDICARE SUPPLEMENT MEDICARE FORMERLY [facility] MEDICARE MEDICARE [employer] MEDICARE SUPPLEMENT Care Teams Lotus Notes Administrator Relationship Specialty Start Date End Date Meaghan Olsen MD PCP - General 12/20/17 García Saucedo MD Consulting Physician Bone Health 03/24/21 Laverne Tavarez MD PhD [address] [facility] [address] [place] [address] Consulting Physician Pulmonary Disease 03/24/21 Elijah Muir MD [address] [facility] [address] [place] [address] Obstetrics and Gynecology 03/26/21 Huma Olsen, RN Registered Nurse Pulmonary Disease 08/02/23
--- OUTSIDE RECORDS SUMMARY | 2025-04-30 14:46 | XMS_ITS | Encounter Summary ---
Author Organization [facility] Address [address] [place] [address] Care Team Providers Care Olive Grower Name Role Phone Meaghan Olsen MD Primary Care Provider García Saucedo MD Unavailable [phone] John Dang MD Unavailable Reason for Visit * Reason Onset Date Comments Medication Prior Auth Request 01/30/2019 [place] roxetine 20 mg Encounter Details Date Type Department Care Team (Late st Contact [facility]) Description 01/30/2019 Telephone [facility] General Internal Medicine [address] [facility] [address] [place] [address] Meaghan Olsen MD [address] [facility] [address] [place], [place] [id number] Medication Prior Auth Request (Paroxetine 20 mg ) Social History Tobacco Use Types Packs/Day Years [...] encounter Miscellaneous Notes * Telephone Encounter - Mackenzie Lewis LPN - 01/31/2019 10:31 AM CDT Attempted to process PA request. Insurance unable to locate patient. Pharmacy notified. * Telephone Encounter - Asiya Temple - 01/30/2019 10:26 AM CDT Pharmacy faxing in notice that Paroxetine 20 mg is not covered by patient's insurance. Prior auth needed. Notice located under patient's media tab dated 01-26-19. Message forwarded to [employer] for assistance. # [phone] documented in this encounter Plan of Treatment Upcoming Encounters Date Type Department Care Team (Late st Contact Info) Description 04/25/2026 1:00 PM CDT Office Visit [facility] - NETWORK SYSTEMS ENGINEER [address] [facility] [address] [place] [address] Elijah Muir MD [address] [facility] [address] [place] [address] documented as of this encounter Visit Diagnoses Not on filedocumented in this encounter Care Teams Olive Grower Relationship Specialty Start Date End Date Meaghan Olsen MD PCP - General 02/22/18 García Saucedo MD [address] [place] [phone] Endocrinology 11/29/18 John Dang MD [address] [place] [phone] Pulmonary Disease 11/29/18 documented as of this encounter
--- OUTSIDE RECORDS SUMMARY | 2025-04-30 14:46 | XMS_ITS | Encounter Summary ---
Author Organization [facility] Address [facility] [place] [address] Care Team Providers Care Alumni Relations Officer Name Role Phone Meaghan Olsen MD Primary Care Provider García Saucedo MD Unavailable [phone] John Dang MD Unavailable Reason for Visit * Reason Onset Date Comments General 01/26/2019 Encounter Details Date Type Department Care Team (Late st Contact Info) Description 01/26/2019 Telephone [facility] General Internal Medicine [address] [facility] [address] [place], [place] [id number] Meaghan Olsen MD [address] [facility] [address] [place] [address] General Social History Tobacco Use Types Packs/Day Years [...] encounter Miscellaneous Notes * Telephone Encounter - ReillyAndie - 01/26/2019 12:13 PM CDT Pt seen in [facility] on 5/22/19 for UTI. Called pt and reports no further need for tx for UTI at this time. MyChart message The medicine medicare is having a problem with is paroxetine. The UTI is worse and no one called to schedule an appt.?How do I get in tomorrow to see someone Thank you Zahra documented in this encounter Plan of Treatment Upcoming Encounters Date Type Department Care Team (Late st Contact Info) Description 04/25/2026 1:00 PM CDT Office Visit [facility] - HAND ROUNDER [address] [facility] [address] [place] [phone] Elijah Muir MD [address] [facility] [address] [place] [address] documented as of this encounter Visit Diagnoses Not on filedocumented in this encounter Care Teams Alumni Relations Officer Relationship Specialty Start Date End Date Meaghan Olsen MD PCP - General 02/22/18 García Saucedo MD [address] [place] [phone] Endocrinology 11/29/18 John Dang MD [address] [place] [phone] Pulmonary Disease 11/29/18 documented as of this encounter
--- OUTSIDE RECORDS SUMMARY | 2025-04-30 14:46 | XMS_ITS | Encounter Summary ---
Author Organization [facility] Address [address] [place] [address] Phone Care Team Providers Care Mail Handler Equipment Operator Name Role Phone Meaghan Olsen MD Primary Care Provider García Saucedo MD Unavailable Laverne Tavarez MD PhD Unavailable [phone] Elijah Muir MD Unavailable [phone] Huma Olsen RN Unavailable Unavailabl e Encounter Details Date Type Department Care Team (Latest Contact Info) Description 01/21/2024 Orders Only [facility] Scanning, Provider [...] on file Legal Sex Female 4:36 PM CIRCUS ROUSTABOUT Gender Identity Not on file Sexual Orientation Not on file documented as of this encounter Plan of Treatment Scheduled Procedures Name Priority Associated Diagnoses Date/Ti me COLONOSCOPY Other constipation ESOPHAGOGASTRODUODENOSCOPY Gastroesophageal reflux disease without esophagitis documented as of this encounter Procedures Procedure Name Priority Date/Time Associated Diagnosis Comments SCAN - RADIOLOGY/IMAGING 01/21/2024 documented in this encounter Results * SCAN - RADIOLOGY/IMAGING (01/21/2024) Anatomical Region Laterality Modality Other Provider Scanning Final Result documented in this encounter Visit Diagnoses Not on filedocumented in this encounter Care Teams Mail Handler Equipment Operator Relationship Specialty Start Date End Date Meaghan Olsen MD PCP - General 12/20/17 García Saucedo MD Consulting Physician Bone Health 03/24/21 Laverne Tavraez MD PhD [address] [facility] [address] [place] [address] Consulting Physician Pulmonary Disease 03/24/21 Elijah Muir MD [address] [facility] [address] [place] [address] Obstetrics and Gynecology 03/26/21 Huma Olsen RN Registered Nurse Pulmonary Disease 08/02/23 documented as of this encounter
--- OUTSIDE RECORDS SUMMARY | 2025-04-30 14:46 | XMS_ITS | Encounter Summary ---
Author Organization [facility] Address [address] [place] [address] Phone Care Team Providers Care Special Projects Manager Name Role Phone Lisseth Perez MD Primary [...] Primary Care Provider García Saucedo MD Unavailable [phone] Laverne Tavarez MD PhD Unavailable [phone] Elijah Muir MD Unavailable [phone] Huma Olsen RN Unavailable Unavailabl e Encounter Details Date Type Department Care Team (Latest Contact Info) Description 03/31/2017 Orders Only [facility] CONVERSION Scanning, Provider Social History Tobacco Use Types Packs/Day Years Used Date Smoking Tobacco: Never Assessed Comments Unknown Sex and Gender Information Value Date Recorded Sex Assigned at Not on file Legal Sex Female 4:36 PM YARN SIZER Gender Identity Not on file Sexual Orientation Not on file documented as of this encounter Plan of Treatment Scheduled Procedures Name Priority Associated Diagnoses Date/Ti me COLONOSCOPY Other constipation ESOPHAGOGASTRODUODENOSCOPY Gastroesophageal reflux disease without esophagitis documented as of this encounter Procedures Procedure Name Priority Date/Time Associated Diagnosis Comments PULMONARY FUNCTION TEST (PFT) 03/31/2017 10:36 AM CDT documented in this encounter Results * PULMONARY FUNCTION TEST (PFT) (03/31/2017 10:36 AM CDT) Anatomical Region Laterality Modality PFT us Provider Scanning PFT ORDERABLES Final Result documented in this encounter Visit Diagnoses Not on filedocumented in this encounter Care Teams Special Projects Manager Relationship Specialty Start Date End Date Lisseth Perez MD [address] [place] [address] PCP - General 02/09/17 05/16/17 Clement Childs MD [address] [address] PCP - General 05/17/17 05/23/17 Lisseth Perez MD [address] [place] [address] PCP - General 05/24/17 07/27/17 Clement Childs MD [address] [address] PCP - General 07/28/17 08/01/17 Lisseth Perez MD [address] [place] [address] PCP - General 08/02/17 11/21/17 Lisseth Perez MD [address] [place] [address] PCP - General 11/22/17 11/29/17 Clement Childs MD [address] [place] [address] PCP - General 11/30/17 12/12/17 Lisseth Perez MD [address] [place] [address] PCP - General 12/13/17 12/13/17 Lisseth Perez MD [address] [place] [address] PCP - General 12/14/17 12/19/17 Meaghan Olsen MD [address] [place] [address] PCP - General 12/20/17 García Saucedo MD [address] [place] [address] Consulting Physician Bone Health 03/24/21 Laverne Tavarez MD PhD [address] [facility] [address] [place] [address] Consulting Physician Pulmonary Disease 03/24/21 Elijah Muir MD [address] [place] [address] Obstetrics and Gynecology 03/26/21 Huma Olsen, RN Registered Nurse Pulmonary Disease 08/02/23 documented as of this encounter
--- OUTSIDE RECORDS SUMMARY | 2025-04-30 14:46 | XMS_ITS | Clinical Summary ---
Author Organization [facility] Address [address] [place] [address] Care Team Providers Care Marketing Professional Name Role Phone Meaghan Olsen MD Primary Care Provider García Saucedo MD Unavailable [phone] John Dang MD Unavailable Source Comments [facility],non-owned Affiliates and Associated Physician Practices is amultiple site organization consisting of ambulatory clinics and hospital sitesin [place], [place] and [place]. This disclosure is being madepursuant to the Care Everywhere program and may not contain all information available regarding this patient. Last updated 18.[facility] Allergies Active Allergy Reactions Criticality Noted Date Comments Levofloxacin Unknown Low 04/29/2015 Flu like symptom Molds & Smuts Unknown Medium 12/20/2017 Medications * Be aware that medications may not be up to date on this document. Alwaysverify current medications with the patient. mepolizumab (NUCALA) 100 MG injection Inject 1 mL subcutaneously every 28 days 02/22/20 18 Active Cholecalcifero l (VITAMIN D3) 2400 UNIT/ML 2,000 Units Activ e albuterol HFA (PROVENTIL;ILEANA TOLIN;PROAIR) 108 (90 Base) MCG/ACT inhaler albuterol sulfate as needed Active triamcinolone (NASACORT AQ) 55 MCG/ACT nasal inhaler Nasacort as needed Active DULERA 200-5 MCG/ACT inhaler INL 2 PFS PO TWICE DAILY. RM WITH WATER AFTER USE. DO NOT SWALLOW 5 07/25/20 19 Active Evening [place] Oil (GLA-45 PO) Active omeprazole (PriLOSEC) 40 MG capsule 04/19/20 23 Active glucosamine-ch ondroitin 500-400 MG tablet Take 1 (one) tablet by mouth 3 times daily Active Misc Natural Products (TURMERIC, CURCUMIN, PO) Take by mouth Ac tive rosuvastatin (Crestor) 5 MG tablet Take 1 (one) tablet by mouth once daily 03/07/20 24 Active valACYclovir (Valtrex) 1 GM tablet Take 2 tabs (2000 mg) 2 times a days for 1 day. 08/09/20 24 Active estradiol (Estrace) 0.5 MG tablet Take 1 (one) tablet by mouth once daily 90 tablet 3 04/19/20 25 Active celecoxib (CeleBREX) 100 MG capsule Take 1 (one) capsule by mouth 2 times daily as needed 11/18/19 24 025 Discontin ued(List Clean-Up) nitrofurantoin monohyd macro crystals (Macrobid) 100 MG capsuleIndicat ions:Urinary Tract Infection Take 1 (one) capsule by mouth 2 times daily with morning and evening meal Reasons: Urinary Tract Infection 14 capsule 06/22/20 24 025 Discontin ued(List Clean-Up) estradiol (Estrace) 0.5 MG tablet Take 1 (one) tablet by mouth once daily 90 tablet 03/20/20 25 025 Discontin ued(Reord er) Active Problems Problem Noted Date Diagnosed Date Other constipation 08/04/2023 11/30/2023 Overview (11/30/2023): Repeat colonoscopy due to possible change in how her constipation is; due for regular screening in 2024 Continue fiber, water Trial of Linzess 145mcg daily [place], sequela 03/10/2022 Overview (05/12/2022): Hematoma on forehead has been improving; continue to monitor Discussed options for therapy for neck stretching, massage, ice Vasovagal syncope 03/10/2022 Overview (05/12/2022): LOC related to abdominal cramping, straining; no further workup at this time Hypertension, essential 01/21/2022 Overview (05/12/2022): BP elevated in clinic; home cuff checked in clinic, consistent readings Start losartan 25mg nightly Importance of treated ZAK to improve BP Monitor at home; send readings via [employer] Last Assessment & Plan: Reviewed role of diet, exercise, weight loss in controlling blood pressure. Recommended low sodium/DASH diet. Continue current medications. Metabolic and nutritional disorder 12/05/2021 11/30/2023 Overview (11/30/2023): Insulin resistance Last Assessment & Plan: Labs. Reviewed most recent labs available. Continue low-carb (<150 g/day), low-glycemic diet. Continue semaglutide. Samples provided. Weight loss counseling, encounter for 12/05/2021 11/30/2023 Overview (11/30/2023): Last Assessment & Plan: Reviewed calorie restriction based on BMR as previously detailed. Reviewed recommendation/goal of >/= 150 minutes/week moderate-intensity aerobic exercise. Asked to keep detailed food diary for at least 1 week and bring to next visit and/or continue tracking on phone. DDD (degenerative disc disease), thoracolumbar 0 05/02/2020 Overview (06/14/2020): Last Assessment & Plan: No red flags in history or exam I recommend continuing conservative therapy for another 2 weeks including scheduled anti-inflammatories, extra strength tylenol and continuing home PT exercises daily She will call in 2 weeks if symptoms do not improve - will order formal course of PT at that time She agrees with plan Fatigue 02/22/2020 Osteoarthrosis 02/21/2020 Overview (05/12/2022): Following with Ortho--has had steroid injections Knees bother her when she is on them a lot, kneeling, sometimes with stairs--livable Feet are her primary issue--MTP arthritis, bunions Podiatrists--got orthotics which has helped her Discussed use of duloxetine--will hold off for now--can call if wants to start Last Assessment & Plan: Discussed comorbidities associated with sleep apnea, including effects on weight, and stressed importance of adequate treatment if present. Idiopathic hematuria 05/30/2019 Assessment & Plan (05/30/2019 4:34 PM CDT): Seen on UA; plan for cystoscopy with UroGyn Menopausal hot flushes 05/30/2019 Assessment & Plan (05/30/2019 4:34 PM CDT): Seen by House Mother--restarted on oral estrogen; plan to wean down after three months of use Reviewed risks of oral estrogen with patient; discussed warning signs of PE, DVT; need to avoid smoking Atrophic vulva 03/22/2019 Dysuria 03/22/2019 Chronic steroid use 12/18/2013 S/P bladder repair 07/04/2013 11/30/2023 Overview (11/30/2023): S/p bladder suspension surgery 08/19/09. Hyperlipidemia 08/12/2009 Overview (05/12/2022): Repeat lipids--previously with LCL >190 on repeat had dropped below 190 Patient resistant to statins in the past; agreeable to started 5mg rosuvstatin QHS in Oct 2021; LDL in December 2021 of 75 No side effects of rosuvastatin Last Assessment & Plan: Labs. Discussed role of diet, exercise and weight loss in improving lipid profile. Insomnia 12/06/2007 Esophageal reflux 11/30/2006 Assessment & Plan (05/30/2019 4:33 PM CDT): Well controlled on omeprazole; previously tried to wean but not able due to uncontrolled symptoms Osteopenia 11/30/2006 Overview (02/22/2018): Overview: Assessment & Plan (05/30/2019 4:24 PM CDT): Continue daily Ca, Vitamin D Encouraged weight bearing exercise Disc disease, degenerative, lumbar or lumbosacra l Hyperparathyroidism, primary Assessment & Plan (05/30/2019 4:24 PM CDT): Following with clinic at [facility]--monitor PTH, Calcium levels DEXA November 2018 ZAK (obstructive sleep apnea) Asthma, severe persistent, poorly-controlled, un complicated Assessment & Plan (05/30/2019 4:21 PM CDT): Well controlled on Nucala--rare albuterol use Encounters Date Type Department Care Team Description 04/19/2025 1:30 PM CDT Office Visit [facility] - SENIOR LIVING ADVISOR [address] [place] [address] Elijah Muir MD Menopausal syndrome (Primary Dx) 04/19/2025 Travel 03/27/2025 Telephone [facility] - SENIOR LIVING ADVISOR [address] [place] [phone] Elijah Muir MD Refill Request 03/20/2025 Refill [facility] - SENIOR LIVING ADVISOR [address] [place] [address] Lara Hendricks, FLAME CUTTING SUPERVISOR REFILL from Last 3 Months Immunizations Immunization Administration Dates Next Due INFLUENZA VACCINE, TRIV. (AF LURIA, FLUZONE TRIVALENT; 6MO+) (IIV3) 07/02/2014,08/15/2012,06/23/2011,2009 Covid Moderna primary monova lent 12+ yr 0.5mL 2020,10/22/2020 FLU VACCINE TRI IIV3 SPLIT P F IM (FLUVIRIN) 07/08/2015,07/03/2013 INFLUENZA A T2D9-52 VACCINE 08/06/2009 INFLUENZA VACCINE 06/17/2023,,05/17/2020,2013,07/03/2013,08/15/2012,06/23/2011,1 09/22/2009,08/06/2009 INFLUENZA VACCINE, ADJUVANTE D, QUADR. (FLUAD QUADRIVALENT; 65Y+) (AIIV4) 05/17/2020 INFLUENZA VACCINE, ADJUVANTE D, TRIV. (FLUAD TRIVALENT; 65Y+) (AIIV3) 06/15/2017 INFLUENZA VACCINE, HIGH-DOSE , QUADR. (FLUZONE HIGH-DOSE QUADRIVALENT; 65Y+), 0.7 ML (HD-IIV4) 07/16/2022,07/29/2021,05/30/2019,2017 INFLUENZA VACCINE, TRIV. (FL UZONE; FLULAVAL; FLUARIX; AFLURIA TRIVALENT; 6MO+), 0.5 ML (IIV3) 05/17/2020 PNEUMOCOCCAL PPSV23 02/22/2018,09/06/2002 Pneumococcal Pcv13 Conj 04/29/2015,09/06/2014 RSV AREXVY 60YR+ 0.5ML 07/14/2023 TDAP (7yrs+) 07/23/2010 TDAP, HISTORIC VACCINE 03/25/2021 ZOSTER VACCINE, LIVE 06/15/2017 Zoster Hzv Vacc Recombinant Inj Im 09/14/2019, Family History Medical History Relation Name Comments CAD (Coronary Artery Disease) Father Hypertension Mother Relation Name Status Comments Father of [place] age 48 Mother Social History Tobacco Use Types Packs/Day Years Used Date Smoking Tobacco: Never Smokeless Tobacco: Never Tobacco Cessation:Counseling Given: Not Answered Alcohol Use Standard Drinks/Week Comments Yes 1 (1 standard drink = 0.6 oz pur e alcohol) rare Comments No Sex and Gender Information Value Date Recorded Sex Assigned at Not on file Legal Sex Female 12:58 PM CDT Gender Identity Not on file Sexual Orientation Not on file Last Filed Vital Signs Vital Sign Reading Time Taken Comments Blood Pressure 124/74 04/19/2025 1:17 PM CDT Pulse 63 09/12/2019 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 Temperature 36.4 C (97.5 F) 05/12/2022 10:58 AM CDT Respiratory Rate 16 01/25/2019 2:56 PM CDT Oxygen Saturation 92% 05/30/2019 11:05 AM CDT Inhaled Oxygen Concentration - - Weight 79.4 kg (175 lb) 04/19/2025 1:17 PM CDT Height 154.9 cm (5' 1) 04/19/2025 1:17 PM CDT Body Mass Index 33.07 04/19/2025 1:17 PM CDT Plan of Treatment Upcoming Encounters Date Type Department Care Team (Late st Contact Info) Description 04/25/2026 1:00 PM CDT Office Visit [facility] - SENIOR LIVING ADVISOR [address] [place] [phone] Elijah Muir MD [address] [facility] [address] [place] [address] Health Maintenance Due Date Last Done Comments COLOGUARD (AGES 45-75) - COLON CA SCREENING [address] COLONOGRAPHY - COLON CA SCREENING 1950 FIT - COLON CA SCREENING 1950 FLEX SIG - COLON CA SCREENING 1950 HEPATITIS C SCREENING 11/15/1967 MEDICARE AWV 12 MONTHS 05/30/2020 05/30/2019 COVID-19 VACCINE ( season) 2024 06/29/2022, 08/05/2021, 2020, Additional history exists DEPRESSION SCREENING 09/06/2024 COLONOSCOPY - COLON CA SCREENING 04/24/2025 04/24/2015 (Done Outside Per Report) Colorectal Cancer Screening 04/24/2025 INFLUENZA VACCINE (#1) 2025 , 07/16/2022, 08/12/2021, Additional history exists MAMMOGRAM 11/03/2025 11/03/2023, 09/0 09/2020, 11/08/2018 (Done Outside Per Report) DTAP/TDAP/TD VACCINES (3 - Td or Tdap) 03/25/2031 03/25/2021, 07/23/2010 PNEUMOCOCCAL VACCINE 50+ Completed 018, 04/29/2015, 09/06/2014, Additional history exists ZOSTER VACCINE Completed 09/14/2019, 06/06, 06/15/2017 BONE DENSITY TESTING Completed 07/07/2022, 06/30/2021, 03/19/2020, Additional history exists Respiratory Syncytial Virus (RSV) Vaccine Pt: or over 60 yrs Completed 07/14/2023 HEPATITIS B VACCINE Aged Out No longe r eligible based on patient's age to complete this topic HIB VACCINE Aged Out No longer eligi ble based on patient's age to complete this topic HPV VACCINE Aged Out No longer eligi ble based on patient's age to complete this topic MENINGOCOCCAL (Group B) VACCINE SHARED DECISION-MAKING Aged Out No longer eligible based on patient's age to complete this topic MENINGOCOCCAL GROUPS A/C/Y/W VACCINE Aged Out No longer eligible based on patient's age to complete this topic Procedures Procedure Name Priority Date/Time Associated Diagnosis Comments MAMMOGRAM Routine 11/03/2023 from Last 3 Months or Most Recently Relevant to Health Maintenance Results * MAMMOGRAM (11/03/2023) Anatomical Region Laterality Modality Other us Historical Provider MD SCANNING ONLY Final Res ult from Last 3 Months or Most Recently Relevant to Health Maintenance Insurance MEDICARE [employer] MEDICARE [facility] Care Teams Marketing Professional Relationship Specialty Start Date End Date Meaghan Olsen MD PCP - General 02/22/18 García Saucedo MD [address] [place] [phone] Endocrinology 11/29/18 John Dang MD [address] [place] [address] [place] [address] Pulmonary Disease 11/29/18
--- OUTSIDE RECORDS SUMMARY | 2025-04-30 14:46 | XMS_ITS | Encounter Summary ---
Author Organization [facility] Address [facility] [facility] [place] [address] Care Team Providers Care Break And Load Operator Name Role Phone Meaghan Olsen MD Primary Care Provider García Saucedo MD Unavailable [phone] John Dang MD Unavailable Reason for Visit * Reason Onset Date Comments MEDICATION REFILL 08/16/2018 Encounter Details Date Type Department Care Team (Late Contact Info) Description 08/16/2018 Refill [facility] General Internal Medicine [address] [address] [place] [address] Meaghan Olsen MD [address] [facility] [address] [place] [address] MEDICATION REFILL Social History Tobacco [...] 04/25/2026 1:00 PM CDT Office Visit [facility] - IGNITION SPECIALIST [address] [facility] [address] [address] [place] [phone] Elijah Muir MD [address] [place], [place] [phone] documented as of this encounter Visit Diagnoses Not on filedocumented in this encounter Care Teams Break And Load Operator Relationship Specialty Start Date End Date Meaghan Olsen MD PCP - General 02/22/18 García Saucedo MD [address] [place] [address] Endocrinology 11/29/18 John Dang MD [address] [place] [address] Pulmonary Disease 11/29/18 documented as of this encounter
== END 2025-04-30 14:37 | disposition home or self-care (01) ==
LOC: ANHIMG 14:37 → ANHFOHIMG 14:43
DX: Z12.31 Encounter for screening mammogram for malignant neoplasm of breast (principal)
CPT/HCPCS: 77063; 77067